=== PATIENT | male | born 1965 | race Caucasian/White ===

== ENCOUNTER → 2019-09-17 | Outpatient (CLI) | payer BC ==
[2019-09-17 11:06] LABS: BLOOD UREA NITROGEN 21 MG/DL (7-18); CALCIUM LEVEL 9.5 MG/DL (8.5-10.1); CARBON DIOXIDE LEVEL 31 MEQ/L (21-32); CHLORIDE LEVEL 106 MEQ/L (98-107); CREATININE FOR GFR 0.91 MG/DL (0.70-1.30); GLOMERULAR FILTRATION RATE > 60.0 (>56); GLUCOSE, FASTING 115 MG/DL (70-100); POTASSIUM SERUM 3.6 MEQ/L (3.5-5.1); SODIUM LEVEL 144 MEQ/L (136-145)
--- NOTE | 2019-09-18 10:51 | ECGEPIP ---
[facility] Test Date: 2019-09-17 Pat Name: JESSICA LOERA Department: Room: - Gender: Male Seamer: BISI : 1965 Requested By: PAT Davidson Order Number: [id number] Reading MD: Elier Sanchez Measurements Intervals [place] Rate: 64 P: 11 ME: 121 QRS: 3 QRSD: 98 T: 7 QT: 394 QTc: 409 Interpretive Statements SINUS RHYTHM POSSIBLE PRIOR INFERIOR WALL INFARCT NO PRIOR TRACING FOR COMPARISON Electronically Signed on 09-18-2019 10:51:07 EST by Elier Sanchez
== END ==
LOC: M LAB 08:37
PROVIDERS: ATTEND Orthopaedic Surgery
DX: Z01.812 Encounter for preprocedural laboratory examination (principal); M75.121 Complete rotator cuff tear or rupture of right shoulder, not specified as traumatic

== ENCOUNTER → 2019-09-17 | Outpatient (CLI) | payer BC ==
--- NOTE | 2019-09-17 09:40 | REP ---
Left hand four views: On the lateral view I suspect there is soft tissue edema dorsally over the MCP articulations. This should be confirmed clinically. Mineralization and joint spaces are normal. There is no fracture or dislocation. There are no calcifications or foreign bodies. Impression: Soft tissue edema dorsally over the MCP articulations. This should be confirmed clinically. Otherwise, negative left hand. Electronically Signed by Dirk Watkins MD 09/17/2019 09:32 A
[2019-09-17 11:06] LABS: ALBUMIN 4.1 GM/DL (3.2-5.2); ALT/SGPT 29 U/L (12-78); BILIRUBIN,TOTAL 0.8 MG/DL (0.2-1.0); BLOOD UREA NITROGEN 21 MG/DL (7-18); CALCIUM LEVEL 9.4 MG/DL (8.5-10.1); CARBON DIOXIDE LEVEL 31 MEQ/L (21-32); CHLORIDE LEVEL 105 MEQ/L (98-107); CHOLESTEROL LEVEL 161 MG/DL (<200); CHOLESTEROL RISK RATIO 3.037 (<5); CREATININE FOR GFR 0.94 MG/DL (0.70-1.30); GLOMERULAR FILTRATION RATE > 60.0 (>56); GLUCOSE, FASTING 113 MG/DL (70-100); HDL CHOLESTEROL 53 MG/DL (>40); LDL CHOLESTEROL 82 MG/DL (<100); NON-HDL-C 108 MG/DL; POTASSIUM SERUM 3.6 MEQ/L (3.5-5.1); SODIUM LEVEL 143 MEQ/L (136-145); TOTAL PROTEIN 7.1 GM/DL (6.4-8.2); TRIGLYCERIDES LEVEL 128 MG/DL (<150)
== END ==
LOC: M LAB 08:31
PROVIDERS: ATTEND Nurse Practitioner Family
DX: R22.32 Localized swelling, mass and lump, left upper limb (principal); I10 Essential (primary) hypertension

== ENCOUNTER → 2021-07-16 | Outpatient (CLI) | payer BC ==
[2021-07-16 16:14] LABS: BASO # 0.1 10^3/uL (0.0-0.2); BASO % 0.8 % (0.0-1.0); EOS # 0.4 10^3/uL (0.0-0.5); EOS % 2.6 % (0.0-3.0); HEMATOCRIT 47.3 % (42.0-52.0); LYMPH # 2.8 10^3/uL (1.5-5.0); LYMPH % 20.3 % (24.0-44.0); MEAN CORPUSCULAR HEMOGLOBIN 30.9 pg (27.0-33.0); MEAN CORPUSCULAR HGB CONC 31.7 g/dl (32.0-36.5); MEAN CORPUSCULAR VOLUME 97.5 fl (80.0-96.0); MONO # 1.9 10^3/uL (0.0-0.8); MONO % 13.9 % (2.0-8.0); NEUTROPHILS # 8.5 10^3/uL (1.5-8.5); NEUTROPHILS % 61.5 % (36.0-66.0); PLATELET COUNT, AUTOMATED 598 10^3/uL (150-450); RED BLOOD COUNT 4.85 10^6/uL (4.30-6.10); WHITE BLOOD COUNT 13.7 10^3/uL (4.0-10.0)
[2021-07-16 16:46] LABS: ERYTHROCYTE SEDIMENTATION RATE 53 mm/hr (0-20)
== END ==
LOC: M WUC 14:57
PROVIDERS: ATTEND Physician Assistant
DX: L03.115 Cellulitis of right lower limb (principal); M71.161 Other infective bursitis, right knee

== ENCOUNTER 2022-09-02 17:18 | Emergency (ER) | payer BC, OTHER ==
[~2022-09-02] VITALS: Ht 165.1 cm; Wt 83.2 kg
[2022-09-02 17:57] VITALS: BP 160/100
[2022-09-02] MEDS ORDERED: ceFAZolin 1GM VIAL IM ONE (18:20)
[2022-09-02] MEDS ORDERED: BOOSTRIX/ADACEL VACCINE (DIPHTH/PERTUSS/ACELL/TETANUS) 0.5ML SYR IM ONE (18:20)
[2022-09-02] MEDS ORDERED: LIDOCAINE 1% MDV 20ML VIAL SC ONE (18:20)
[2022-09-02] MEDS ORDERED: ACETAMINOPHEN 500 MG TAB PO ONE (18:20)
[2022-09-02] MEDS ORDERED: CEPH500C PO (20:24)
[2022-09-04] MEDS ORDERED: ACET-897 PO (10:32)
[2022-09-04] MEDS ORDERED: ROSU10TA6 PO (10:32)
[2022-09-04] MEDS ORDERED: CHLO125TA PO (10:32)
[2022-09-04] MEDS ORDERED: OSTETAB2 PO (10:32)
[2022-09-04] MEDS ORDERED: AMLO1TAB25 PO (10:32)
[2022-09-04] MEDS ORDERED: VITMTA PO (10:32)
== END 2022-09-02 20:44 | disposition home or self-care (01) ==
LOC: M ED 19:09
DX: S62.661A Nondisplaced fracture of distal phalanx of left index finger, initial encounter for closed fracture (principal); S61.321A Laceration with foreign body of left index finger with damage to nail, initial encounter; W23.1XXA Caught, crushed, jammed, or pinched between stationary objects, initial encounter; Y92.9 Unspecified place or not applicable; Y93.9 Activity, unspecified; Y99.0 Civilian activity done for income or pay; Z23 Encounter for immunization
CPT/HCPCS: 12002; 73140; 90471; 90715; 96372; 99284; J0690

== ENCOUNTER → 2022-09-03 | Outpatient (CLI) | payer OTHER, BC ==
[~2022-09-03] MED LIST: ACET-897 PO; AMLO1TAB25 PO; CEPH500C PO; CHLO125TA PO; OSTETAB2 PO; ROSU10TA6 PO; VITMTA PO
== END ==
LOC: M SOG 13:29
PROVIDERS: ATTEND Orthopaedic Surgery Hand Surgery
DX: M79.645 Pain in left finger(s) (principal)

== ENCOUNTER → 2022-09-04 | Outpatient (CLI) | payer OTHER, BC | LOC: M LABSMTC 11:10 | PROVIDERS: ATTEND Anesthesiology | DX: Z01.818 Encounter for other preprocedural examination (principal) ==

== ENCOUNTER 2022-09-06 13:56 | Day surgery (SDC) | payer BC, OTHER ==
[~2022-09-06] VITALS: Ht 165.1 cm; Wt 81.2 kg
[2022-09-06] MEDS ORDERED: LR 1,000 ML IV SCH ×2 (14:40→17:40)
[2022-09-06] MEDS ORDERED: propofoL 200 MG/20 ML VIAL As Ordered ONE (15:51)
[2022-09-06] MEDS ORDERED: MIDAZOLAM INJ 2MG/2ML VIAL As Ordered ONE (15:51)
[2022-09-06] MEDS ORDERED: fentaNYL 100 MCG/2 ML INJECTION As Ordered ONE (15:51)
[2022-09-06] MEDS ORDERED: ONDANSETRON 4MG 2ML VIAL As Ordered ONE (15:51)
[2022-09-06] MEDS ORDERED: LIDOCAINE 2% 100MG/5ML SDV (FOR ANES.) As Ordered ONE (15:51)
[2022-09-06] MEDS ORDERED: BACITRACIN OINTMENT 30GM TUBE As Ordered ONE (16:07)
[2022-09-06] MEDS ORDERED: BUPIVACAINE HCL 0.25% 30ML VIAL As Ordered ONE (16:08)
[2022-09-06] MEDS ORDERED: ceFAZolin 2 GM/D5W 50 ML IV BAG As Ordered ONE (16:25)
[2022-09-06] MEDS ORDERED: ePHEDrine SULFATE 25 MG/5 ML(5MG/ML) SYRINGE As Ordered ONE (17:04)
[2022-09-06] MEDS ORDERED: ACETAMINOPHEN 1000MG 100ML IV BAG As Ordered ONE (17:14)
[2022-09-06] MEDS ORDERED: KETOROLAC 60MG 2ML VIAL As Ordered ONE (17:14)
[2022-09-06] MEDS ORDERED: PERC5TAB12 PO (17:39)
[2022-09-06] MEDS ORDERED: HYDROMORPHONE HCL 0.5 MG/ 0.5 ML SYRINGE IV PRN ×2 (17:40)
[2022-09-06] MEDS ORDERED: NORCO, ANEXSIA 5/325MG TABLET (HYDROcodone/ACETAMINOPHEN) PO PRN (17:40)
[2022-09-06] MEDS ORDERED: ONDANSETRON 4MG 2ML VIAL IV PRN (17:40)
[2022-09-06] MEDS ORDERED: LABETALOL 100MG/20ML VIAL IV PRN (17:40)
[2022-09-06 18:33] VITALS: BP 169/94
== END 2022-09-06 19:00 | disposition home or self-care (01) ==
LOC: M SDC 13:56
PROVIDERS: ATTEND Orthopaedic Surgery Hand Surgery
DX: S62.631B Displaced fracture of distal phalanx of left index finger, initial encounter for open fracture (principal); W23.1XXA Caught, crushed, jammed, or pinched between stationary objects, initial encounter; Y92.9 Unspecified place or not applicable; Y93.9 Activity, unspecified; Y99.0 Civilian activity done for income or pay; I10 Essential (primary) hypertension; E78.5 Hyperlipidemia, unspecified; F17.210 Nicotine dependence, cigarettes, uncomplicated; Z79.899 Other long term (current) drug therapy; Z88.8 Allergy status to other drugs, medicaments and biological substances
CPT/HCPCS: 26765; 76000; J0131; J0690; J1100; J1885; J2250; J2405; J3010; S0020

== ENCOUNTER → 2022-09-12 | Outpatient (CLI) | payer OTHER, BC ==
[~2022-09-12] MED LIST changes: +PERC5TAB12 PO
== END ==
LOC: M SOG 13:24
PROVIDERS: ATTEND Physician Assistant
DX: S67.191A Crushing injury of left index finger, initial encounter (principal); S62.631B Displaced fracture of distal phalanx of left index finger, initial encounter for open fracture

== ENCOUNTER → 2022-10-17 | Outpatient (CLI) | payer OTHER, BC | LOC: M SOG 07:52 | PROVIDERS: ATTEND Physician Assistant | DX: S62.631D Displaced fracture of distal phalanx of left index finger, subsequent encounter for fracture with routine healing (principal); Y92.9 Unspecified place or not applicable; Y93.9 Activity, unspecified ==

== ENCOUNTER → 2022-11-22 | Outpatient (CLI) | payer OTHER, BC | LOC: M SOG 08:03 | PROVIDERS: ATTEND Physician Assistant | DX: S62.631D Displaced fracture of distal phalanx of left index finger, subsequent encounter for fracture with routine healing (principal) ==

== ENCOUNTER → 2022-12-24 | Outpatient (CLI) | payer OTHER, BC | LOC: M WUC 09:30 | PROVIDERS: ATTEND Physician Assistant | DX: S40.012A Contusion of left shoulder, initial encounter (principal); W18.30XA Fall on same level, unspecified, initial encounter; Y92.009 Unspecified place in unspecified non-institutional (private) residence as the place of occurrence of the external cause ==

== ENCOUNTER → 2023-09-09 | Outpatient (CLI) | payer BC | LOC: M RAD 08:51 | PROVIDERS: ATTEND Nurse Practitioner Family | DX: N13.30 Unspecified hydronephrosis (principal); Z87.442 Personal history of urinary calculi; N28.1 Cyst of kidney, acquired ==

== ENCOUNTER 2023-10-10 08:33 | Day surgery (SDC) | payer BC ==
[~2023-10-10] VITALS: Ht 165.1 cm; Wt 78.4 kg
[~2023-10-10 08:33] MED LIST changes: +ASPI81TA26 PO; +THERTAB52 PO
[2023-10-10] MEDS ORDERED: fentaNYL 100 MCG/2 ML INJECTION As Ordered ONE (09:41)
[2023-10-10] MEDS ORDERED: propofoL 200 MG/20 ML VIAL As Ordered ONE (09:42)
[2023-10-10] MEDS ORDERED: ONDANSETRON 4MG 2ML VIAL As Ordered ONE (09:42)
[2023-10-10] MEDS ORDERED: MIDAZOLAM INJ 2MG/2ML VIAL As Ordered ONE (09:42)
[2023-10-10] MEDS ORDERED: ACETAMINOPHEN 1000MG 100ML IV BAG As Ordered ONE (09:42)
[2023-10-10] MEDS ORDERED: KETOROLAC 60MG 2ML VIAL As Ordered ONE (09:42)
[2023-10-10] MEDS ORDERED: LIDOCAINE 2% 100MG/5ML SDV (FOR ANES.) As Ordered ONE (09:42)
[2023-10-10] MEDS ORDERED: CEPH500C PO (09:58)
[2023-10-10] MEDS: LR 1,000 ML IV SCH (10:09)
[2023-10-10] MEDS: ceFAZolin SOD 2 GM in IV 1 EA IV ONE (10:42)
[2023-10-10] MEDS: ISOVUE-300 61% 100ML VIAL As Ordered ONE (12:30)
[2023-10-10] MEDS ORDERED: fentaNYL 100 MCG/2 ML INJECTION IV PRN (12:45)
[2023-10-10] MEDS ORDERED: LR 1,000 ML IV SCH (12:45)
[2023-10-10] MEDS: ONDANSETRON 4MG 2ML VIAL IV PRN (12:58)
[2023-10-10] MEDS ORDERED: FLOM0.4C39 PO (13:27)
[2023-10-10 13:30] VITALS: BP 157/90; TEMP 98.2; O2SAT 95
[2023-10-10] MEDS ORDERED: PERCOCET 5MG/325MG TAB PO PRN (13:30)
== END 2023-10-10 13:50 | disposition home or self-care (01) ==
LOC: M SDC 08:33
PROVIDERS: ATTEND Urology
DX: N13.2 Hydronephrosis with renal and ureteral calculous obstruction (principal); I10 Essential (primary) hypertension; E78.00 Pure hypercholesterolemia, unspecified; Z79.899 Other long term (current) drug therapy; Z79.82 Long term (current) use of aspirin; Z87.891 Personal history of nicotine dependence; Z90.49 Acquired absence of other specified parts of digestive tract; Z88.8 Allergy status to other drugs, medicaments and biological substances
CPT/HCPCS: 52356; 74420; 82365; C1769; C1894; C2617; J0131; J0690; J1100; J1885; J2250; J2405; J3010; Q9967

== ENCOUNTER 2023-12-05 10:04 | Emergency (ER) | payer OTHER, BC ==
[~2023-12-05] VITALS: Ht 165.1 cm; Wt 81.1 kg
[~2023-12-05 10:04] MED LIST changes: +FLOM0.4C39 PO
[2023-12-05] MEDS: cefTRIAXone SOD 1 GM in D5W MINI-BAG PLUS 50 ML IV ONE (12:32)
[2023-12-05] MEDS: LIDOCAINE 1% MDV 20ML VIAL SC ONE (12:33)
[2023-12-05] MEDS ORDERED: CEPH500C PO (13:00)
[2023-12-05 13:25] VITALS: BP 158/90; TEMP 97.3; O2SAT 98
== END 2023-12-05 13:25 | disposition home or self-care (01) ==
LOC: M ED 10:04
DX: S62.660B Nondisplaced fracture of distal phalanx of right index finger, initial encounter for open fracture (principal); S62.656B Nondisplaced fracture of middle phalanx of right little finger, initial encounter for open fracture; S67.196A Crushing injury of right little finger, initial encounter; W22.8XXA Striking against or struck by other objects, initial encounter; Y92.63 Factory as the place of occurrence of the external cause; Y92.89 Other specified places as the place of occurrence of the external cause; Y99.0 Civilian activity done for income or pay; I10 Essential (primary) hypertension; F17.200 Nicotine dependence, unspecified, uncomplicated; Z88.8 Allergy status to other drugs, medicaments and biological substances
CPT/HCPCS: 12002; 73140; 96374; 99283; J0696

== ENCOUNTER → 2023-12-15 | Outpatient (CLI) | payer OTHER, BC | LOC: M SOG 15:15 | PROVIDERS: ATTEND Physician Assistant | DX: S67.196D Crushing injury of right little finger, subsequent encounter (principal); Y93.9 Activity, unspecified; Y92.9 Unspecified place or not applicable ==

== ENCOUNTER → 2024-01-01 | Outpatient (CLI) | payer OTHER, BC ==
[~2024-01-01] MED LIST changes: -ROSU10TA6 PO; +ROSU10TA61 PO
== END ==
LOC: M SOG 07:57
PROVIDERS: ATTEND Physician Assistant
DX: S67.196D Crushing injury of right little finger, subsequent encounter (principal)

== ENCOUNTER → 2024-01-29 | Outpatient (CLI) | payer OTHER, BC | LOC: M SOG 09:22 | PROVIDERS: ATTEND Physician Assistant | DX: S67.196D Crushing injury of right little finger, subsequent encounter (principal) ==

== ENCOUNTER → 2024-04-19 | Outpatient (CLI) | payer BC | LOC: M RAD 12:40 | PROVIDERS: ATTEND Urology | DX: N20.0 Calculus of kidney (principal) ==

== ENCOUNTER → 2024-06-08 | Outpatient (REF) | payer BC | LOC: M SMT 12:27 | PROVIDERS: ATTEND Urology | DX: R97.20 Elevated prostate specific antigen [PSA] (principal) ==

== ENCOUNTER → 2024-11-04 | Outpatient (CLI) | payer BC ==
[2024-11-04 11:23] LABS: HEMATOCRIT 47.1 % (42.0-52.0); HEMOGLOBIN 15.7 g/dl (13.5-17.5); MEAN CORPUSCULAR HEMOGLOBIN 30.9 pg (27.0-33.0); MEAN CORPUSCULAR HGB CONC 33.3 g/dl (32.0-36.5); MEAN CORPUSCULAR VOLUME 92.7 fl (80.0-96.0); PLATELET COUNT, AUTOMATED 408 10^3/uL (150-450); RED BLOOD COUNT 5.08 10^6/uL (4.30-6.10)
[2024-11-04 11:36] LABS: INR 0.86; PARTIAL THROMBOPLASTIN TIME 25.6 SECONDS (24.8-34.2)
[2024-11-04 11:59] LABS: BLOOD UREA NITROGEN 21 MG/DL (9-23); CALCIUM LEVEL 9.3 MG/DL (8.3-10.6); CARBON DIOXIDE LEVEL 31 MMOL/L (20-31); CHLORIDE LEVEL 98 MMOL/L (98-107); CREATININE FOR GFR 0.93 MG/DL (0.70-1.30); GLOMERULAR FILTRATION RATE > 60.0 (>49); GLUCOSE, FASTING 268 MG/DL (74-106); POTASSIUM SERUM 3.5 MMOL/L (3.5-5.1); SODIUM LEVEL 138 MMOL/L (136-145)
== END ==
LOC: M RAD 10:19
PROVIDERS: ATTEND Urology
DX: Z01.818 Encounter for other preprocedural examination (principal)

== ENCOUNTER → 2024-11-04 | Outpatient (CLI) | payer BC | LOC: M RAD 10:21 | PROVIDERS: ATTEND Nurse Practitioner Family | DX: Z87.442 Personal history of urinary calculi (principal) ==

== ENCOUNTER 2024-11-25 06:02 | Day surgery (SDC) | payer BC ==
[2024-11-25] VITALS (7 sets, daily range): BP systolic 110–125; BP diastolic 71–79; TEMP 97.3–97.7; O2SAT 92–98
[~2024-11-25] VITALS: Ht 165.1 cm; Wt 83.0 kg
[~2024-11-25 06:02] MED LIST changes: +CELE1CAP99 PO; +METF-838 PO
[2024-11-25] MEDS ORDERED: fentaNYL 100 MCG/2 ML INJECTION As Ordered ONE (06:55)
[2024-11-25] MEDS ORDERED: MIDAZOLAM INJ 2MG/2ML VIAL As Ordered ONE (06:55)
[2024-11-25] MEDS ORDERED: LIDOCAINE 2% 100MG/5ML SDV (FOR ANES.) As Ordered ONE (06:57)
[2024-11-25] MEDS ORDERED: ROCURONIUM BROMIDE 50MG/5ML VIAL As Ordered ONE (06:57)
[2024-11-25] MEDS ORDERED: propofoL 200 MG/20 ML VIAL As Ordered ONE (06:57)
[2024-11-25] MEDS ORDERED: ONDANSETRON 4MG 2ML VIAL As Ordered ONE (06:57)
[2024-11-25] MEDS ORDERED: ONDANSETRON 4MG 2ML VIAL IV PRN ×2 (07:25→13:15)
[2024-11-25] MEDS ORDERED: GLUCOSE 4 GM CHEW PO PRN (07:25)
[2024-11-25] MEDS ORDERED: PERCOCET 5MG/325MG TAB PO PRN (07:25)
[2024-11-25] MEDS ORDERED: ACETAMINOPHEN 325 MG TAB PO PRN (07:25)
[2024-11-25] MEDS ORDERED: DEXTROSE 50% 50ML SYRINGE IV PRN (07:25)
[2024-11-25] MEDS ORDERED: GLUCAGON INJ 1MG VIAL SC PRN (07:25)
[2024-11-25] MEDS ORDERED: INSULIN LISPRO (NovoLOG) PER UNIT SC SCH (07:30)
[2024-11-25] MEDS: ceFAZolin SOD 2 GM IV ONCE IV ONE (08:00)
[2024-11-25] MEDS: HEPARIN SOD (PORCINE) 5000UNITS/ML 1ML VIAL/SYRINGE SQ ONE (08:18)
[2024-11-25] MEDS ORDERED: ACETAMINOPHEN 1000MG/100ML IV BAG As Ordered ONE (09:04)
[2024-11-25] MEDS ORDERED: SUGAMMADEX SODIUM 500 MG/5 ML VIAL (BRIDION) As Ordered ONE (09:04)
[2024-11-25] MEDS ORDERED: HOME MED LIST COMPLETE! XX SCH (09:45)
[2024-11-25] MEDS ORDERED: ALBUTEROL 6.7GM INHALER **FOR ANES. CART/OMNICELL ONLY As Ordered ONE (09:53)
[2024-11-25] MEDS: ceFAZolin SODIUM 2 GM VIAL As Ordered ONE (11:58)
[2024-11-25] MEDS: LIDOCAINE 1% SDV 30ML VIAL As Ordered ONE (13:02)
[2024-11-25] MEDS: INSULIN LISPRO (NovoLOG) PER UNIT SC PRN (13:35)
[2024-11-25] MEDS ORDERED: PROMETHAZINE 25MG/ML 1ML VIAL IV PRN (13:55)
[2024-11-25] MEDS ORDERED: HYDROMORPHONE HCL 0.5 MG/ 0.5 ML SYRINGE IV PRN (13:55)
[2024-11-25 14:15] LABS: HEMATOCRIT 42.2 % (42.0-52.0); HEMOGLOBIN 13.7 g/dl (13.5-17.5); MEAN CORPUSCULAR HGB CONC 32.5 g/dl (32.0-36.5); MEAN CORPUSCULAR VOLUME 95.5 fl (80.0-96.0); PLATELET COUNT, AUTOMATED 370 10^3/uL (150-450); RED BLOOD COUNT 4.42 10^6/uL (4.30-6.10); WHITE BLOOD COUNT 13.6 10^3/uL (4.0-10.0)
[2024-11-25] MEDS: NS (Normal Saline) 0.9% 500 ML IV SCH (14:47)
[2024-11-25 14:49] LABS: BLOOD UREA NITROGEN 18 MG/DL (9-23); CARBON DIOXIDE LEVEL 29 MMOL/L (20-31); CHLORIDE LEVEL 103 MMOL/L (98-107); CREATININE FOR GFR 0.93 MG/DL (0.70-1.30); GLOMERULAR FILTRATION RATE > 90.0 (>49); GLUCOSE, FASTING 224 MG/DL (74-106); POTASSIUM SERUM 3.4 MMOL/L (3.5-5.1); SODIUM LEVEL 142 MMOL/L (136-145)
[2024-11-25] MEDS: PERCOCET 5MG/325MG TAB PO PRN (15:02)
[2024-11-25] MEDS: DOCUSATE SODIUM 100MG CAPSULE PO SCH (15:30)
[2024-11-25] MEDS: INSULIN LISPRO (NovoLOG) PER UNIT SC SCH ×2 (15:33→21:56)
[2024-11-25] MEDS: ceFAZolin SOD 1 GM in DEXTROSE 5% (D5W) ADV/MINI-BAG 50 ML IV SCH (16:04)
[2024-11-25] MEDS: HEPARIN SOD (PORCINE) 5000UNITS/ML 1ML VIAL/SYRINGE SC SCH (21:56)
[2024-11-26] VITALS: BP 116/71; TEMP 97.9; O2SAT 95
[2024-11-26 05:00] VITALS: BP 116/73; TEMP 97.9; O2SAT 94
[2024-11-26 05:46] LABS: HEMATOCRIT 40.3 % (42.0-52.0); HEMOGLOBIN 13.2 g/dl (13.5-17.5); MEAN CORPUSCULAR HEMOGLOBIN 31.6 pg (27.0-33.0); MEAN CORPUSCULAR HGB CONC 32.8 g/dl (32.0-36.5); MEAN CORPUSCULAR VOLUME 96.4 fl (80.0-96.0); PLATELET COUNT, AUTOMATED 369 10^3/uL (150-450); RED BLOOD COUNT 4.18 10^6/uL (4.30-6.10); WHITE BLOOD COUNT 14.2 10^3/uL (4.0-10.0)
[2024-11-26 06:16] LABS: BLOOD UREA NITROGEN 18 MG/DL (9-23); CALCIUM LEVEL 7.8 MG/DL (8.3-10.6); CARBON DIOXIDE LEVEL 32 MMOL/L (20-31); CHLORIDE LEVEL 103 MMOL/L (98-107); CREATININE FOR GFR 0.88 MG/DL (0.70-1.30); GLOMERULAR FILTRATION RATE > 90.0 (>49); GLUCOSE, FASTING 113 MG/DL (74-106); POTASSIUM SERUM 3.3 MMOL/L (3.5-5.1); SODIUM LEVEL 144 MMOL/L (136-145)
[2024-11-26] MEDS: POTASSIUM CHLORIDE 10MEQ SR TABLET PO ONE (06:38)
[2024-11-26] MEDS ORDERED: COLA100C5 PO (07:36)
[2024-11-26] MEDS ORDERED: PERCOCET PO (07:36)
[2024-11-26] MEDS ORDERED: CIPR-249 PO (07:36)
[2024-11-26 08:30] VITALS: BP 128/78; TEMP 97.9; O2SAT 93
[2024-11-26 08:46] VITALS: BP 117/67
[2024-11-26] MEDS: CHLORTHALIDONE 25 MG TAB PO SCH (10:34)
== END 2024-11-26 12:04 | disposition home or self-care (01) ==
LOC: M SDC 06:02 → M MSPAV 14:24 → M SDC 11-26 12:04
PROVIDERS: ATTEND Urology
DX: C61 Malignant neoplasm of prostate (principal); E11.9 Type 2 diabetes mellitus without complications; I10 Essential (primary) hypertension; E78.00 Pure hypercholesterolemia, unspecified; Z79.899 Other long term (current) drug therapy; Z79.84 Long term (current) use of oral hypoglycemic drugs; R06.83 Snoring; F17.210 Nicotine dependence, cigarettes, uncomplicated
CPT/HCPCS: 36415; 38571; 55866; 80048; 85027; 86850; 86900; 86901; 88305; 88309; J0131; J0665; J0690; J1100; J1815; J2250; J2405; J3010; S2900

== ENCOUNTER → 2024-12-02 | Outpatient (CLI) | payer BC ==
[~2024-12-02] MED LIST changes: +CIPR-249 PO; +COLA100C5 PO; +PERCOCET PO
== END ==
LOC: M RAD 09:57
PROVIDERS: ATTEND Nurse Practitioner Family
DX: K59.00 Constipation, unspecified (principal); Z87.442 Personal history of urinary calculi

== ENCOUNTER → 2024-12-28 | Outpatient (CLI) | payer BC ==
[~2024-12-28] MED LIST changes: -FLOM0.4C39 PO; +TAMS-18 PO
== END ==
LOC: M LAB 14:23
PROVIDERS: ATTEND Nurse Practitioner Family
DX: C61 Malignant neoplasm of prostate (principal)

== ENCOUNTER → 2025-03-30 | Outpatient (CLI) | payer BC | LOC: M LAB 07:01 | PROVIDERS: ATTEND Urology | DX: C61 Malignant neoplasm of prostate (principal) ==

== ENCOUNTER → 2025-06-28 | Outpatient (CLI) | payer BC ==
[~2025-06-28] MED LIST changes: -ROSU10TA61 PO; +ROSU10TA90 PO
== END ==
LOC: M LAB 08:48
PROVIDERS: ATTEND Urology
DX: C61 Malignant neoplasm of prostate (principal)